=== PATIENT | female | born 2005 | race Caucasian/White ===

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

== ENCOUNTER 2024-05-02 21:15 | Emergency (ER) | payer BC, SELFPAY ==
--- OUTSIDE RECORDS SUMMARY | 2024-05-02 21:17 | XMS_ITS | Continuity of Care Document ---
Author Organization [facility] Address [address] [place] [address] Phone Care Team Providers Care Sales Trader Name Role Phone Dixon OD, Brian Unavailable Unavailable Procedures Procedure Date Eye Exam, New Patient Refraction Advance Directives Directive Yes / No Effective Date File Name No Information Encounters Encounter Description Practice Location Reason(s) For Visit Diagnoses Date Provider Providers Copied on Encounter [facility], [address], [place], [place], [id number], [place] tel:[phone] [facility] No Information [phone] Dixon OD Brian. [address] , [address], [place], [address], [place]. tel:[phone] Family History Family Member Type Diagnosis Age At Onset No Information Payers Payer name Insurance type Covered constitution party ID Authoriza tion(s) No Information Social History Type Description Quantity Date Captured Comments Sex Female Smoking Status No Information Chief Complaint And Reason For Visit No Information Reason For Referral Reason For Referral No Information History Of Present Illness Encounter Date Complaint History Of Prese nt Illness No Information Functional Status Date Functional Assessmen t No Information Instructions Date Instruction Additional Infor mation No Information Assessments Type Assessment Date No Information Patient Care Teams Name Effective Dates (start - stop) Status Members No Information
--- OUTSIDE RECORDS SUMMARY | 2024-05-02 21:17 | XMS_ITS | Clinical Summary ---
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 Gender Identity Not on file Sexual Orientation Not on file Plan of Treatment Health Maintenance Due Date Last Done Comments Hepatitis C Virus (HCV) Screening 2004 Hepatitis B Immunization (4 of 4 - 4-dose series) 2004 2004, 2004, 2004 Meningococcal B Immunization (1 of 2 - Standard) 2020 Influenza Immunization (#1) 2023 12/21/2019, 1 SARS-COV-2 Immunization ( - season) 2023 Respiratory Syncytial Virus (RSV) Immunization (Adult) (1 - 1-dose 75+ series) 02/20/2079 Pneumococcal Immunization Combined Completed 05/24/2005, 2004, 2004, Additional history exists Measles Mumps Rubella (MMR) Immunization Discontinued 11/28/2008, 05/24/2005 Varicella Immunization Discontinued 03/01/2010, 2009 DTaP/Tdap/Td Immunization Discontinued 2015, 05/27/2008, 08/30/2005, Additional history exists TdaP Immunization Completed 08/17/2015 Hepatitis A Immunization Discontinued 11/11/2018, 07/26 Human Papillomavirus (HPV) Immunization Completed 11/11/2018, 08/13/2016, 08/17/2015 Meningococcal Immunization (ACWY) Aged Out No longer eligible based on patient's age to complete this topic Rotavirus Immunization Aged Out No lo nger eligible based on patient's age to complete this topic Insurance [employer] on file
--- OUTSIDE RECORDS SUMMARY | 2024-05-02 21:17 | XMS_ITS | Referral Summary ---
Author Organization [facility] Address [address] [place] [address] Care Team Providers Care Supervisor Hard Candy Name Role Phone Espinoza Lopez MD Primary Care Provider Source Comments [facility],non-owned Affiliates and Associated Physician Practices is amultiple site organization consisting of ambulatory clinics and hospital sitesin [place], [place], [place] and [place]. This disclosure is being madepursuant to the Care Everywhere program and may not contain all information available regarding this patient. Last updated 17.[facility] Allergies No known active allergies Medications * Be aware that medications may not be up to date on this document. Alwaysverify current medications with the patient. Medication Sig Dispensed Refills Start Date End Date Status montelukast (SINGULAIR) 5 MG chew tablet CHEW AND SWALLOW 1 TABLET DAILY IN THE EVENING. 90 Tab 10 05/03/2015 Active albuterol (PROVENTIL;VENTOLIN) (2.5 MG/3ML) 0.083% nebulizer solution Inhale 2.5 mg by mouth every 4 hours as needed for Shortness of Breath or Wheezing 1 Box 1 09/08/2015 Active triamcinolone (NASACORT ALLERGY 24HR) 55 MCG/ACT nasal inhaler [place]red[place] 1 [place]redell into each nostril once daily 1 Inhaler 1 09/08/2015 Active fexofenadine (EDGAR) 60 MG tablet GIVE VICENTA 1 TABLET BY MOUTH EVERY DAY 30 Tab 3 07/04/2016 Active FLOVENT HFA 44 MCG/ACT inhaler INHALE 2 PUFFS BID 02/13/2019 A ctive loratadine (CLARITIN) 10 MG tablet Take 10 mg by mouth once daily Active atomoxetine (STRATTERA) 10 MG capsule Take 10 mg by mouth once daily 01/26/2020 Active albuterol HFA (PROAIR HFA) 108 (90 Base) MCG/ACT inhaler Inhale 2 puffs by mouth every 6 hours as needed 2 Inhaler 1 02/09/2020 Active Active Problems Problem Noted Date Diagnosed Date Moderate persistent asthma with acute exacerbati on 02/09/2020 Assessment & Plan (02/09/2020 2:29 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 For the most part, she has done well even in the face of incomplete adherence to Flovent and not using spacing device consistently. Regardless, not much in the way of albuterol use and no exercise intolerance or nocturnal symptoms. No recent ED or office visits, no oral steroids. Rec: Flovent 44 2 puffs bid-discussed importance of using consistently to reduce need for albuterol Albuterol prn Refill provided Reviewed Aerochamber technique Reviewed inhaler technique Influenza vaccine administered in November F/U 6 months in person visit at [facility] 02/22/2014 Asthma 10/20/2013 Assessment & Plan (05/03/2015 2:58 PM CLAY STRUCTURE BUILDER AND SERVICER): Recent mild exacerbations associated with sinus infections. Not using Aerochamber for Flovent. Rec; Flovent 44 2 puffs bid Albuterol prn Reviewed importance of Aerochamber use Inhaler use reviewed Have recommended further f/u with colleague and friend in [place], Dr. Gladis Garrido, head of Pulmonary at [facility] Immunizations Name Administration Dates Next Due INFLUENZA VACCINE 12/17/2019 Social History Tobacco Use Types Packs/Day Years Used Date Smoking Tobacco: Never Smokeless Tobacco: Never Alcohol Use Standard Drinks/Week Comments No 0 (1 standard drink = 0.6 oz pur e alcohol) Sex and Gender Information Value Date Recorded Sex Assigned at Not on file Gender Identity Not on file Sexual Orientation Not on file Last Filed Vital Signs Vital Sign Reading Time Taken Comments Blood Pressure 92/64 12/15/2013 2:02 PM CDT Pulse 102 05/03/2015 2:19 PM CLAY STRUCTURE BUILDER AND SERVICER Temperature 35.9 C (96.6 F) 05/15/2010 8:59 AM CDT Respiratory Rate 20 05/03/2015 2:19 PM CLAY STRUCTURE BUILDER AND SERVICER Oxygen Saturation 99% 05/03/2015 2:19 PM CLAY STRUCTURE BUILDER AND SERVICER Inhaled Oxygen Concentration - - Weight 50.8 kg (111 lb 15.9 oz) 05/03/2015 2:19 PM CLAY STRUCTURE BUILDER AND SERVICER Height 154.2 cm (5' 0.71 ) 05/03/2015 2:19 PM CS T Body Mass Index 21.36 05/03/2015 2:19 PM CLAY STRUCTURE BUILDER AND SERVICER Plan of Treatment Not on file Care Teams Supervisor Hard Candy Relationship Specialty Start Date End Date Espinoza Lopez MD [address] [place] [address] PCP - General Pediatrics 12/15/13
--- OUTSIDE RECORDS SUMMARY | 2024-05-02 21:17 | XMS_ITS | Patient Health Summary ---
Author Organization [facility] Address [address] [place] [address] Care Team Providers Care Sugar Mill Worker Name Role Phone Espinoza Lopez MD Primary Care Provider Note from [facility],non-owned Affiliates and Associated Physician Practices is amultiple site organization consisting of ambulatory clinics and hospital sitesin [place], [place], [place] and [place]. This disclosure is being madepursuant to the Care Everywhere program and may not contain all information available regarding this patient. Last updated 17.[facility] Allergies No known active allergies Medications * Be aware that medications may not be up to date on this document. Alwaysverify current medications with the patient. * montelukast (SINGULAIR) 5 MG chew tablet(Started 05/03/2015) CHEW AND SWALLOW 1 TABLET DAILY IN THE EVENING. 10 refills left * albuterol (PROVENTIL;VENTOLIN) (2.5 MG/3ML) 0.083% nebulizer solution(Started 09/08/2015) Inhale 2.5 mg by mouth every 4 hours as needed for Shortness of Breath or Wheezing 1 refill left * triamcinolone (NASACORT ALLERGY 24HR) 55 MCG/ACT nasal inhaler(Started 09/08/2015) Williamson 1 Williamson into each nostril once daily 1 refill left * fexofenadine (EDGAR) 60 MG tablet(Started 07/04/2016) GIVE VICENTA 1 TABLET BY MOUTH EVERY DAY 3 refills remaining * FLOVENT HFA 44 MCG/ACT inhaler(Started 02/13/2019) INHALE 2 PUFFS BID * loratadine (CLARITIN) 10 MG tablet Take 10 mg by mouth once daily * atomoxetine (STRATTERA) 10 MG capsule(Started 01/26/2020) Take 10 mg by mouth once daily * albuterol HFA (PROAIR HFA) 108 (90 Base) MCG/ACT inhaler(Started 02/09/2020) Inhale 2 puffs by mouth every 6 hours as needed 1 refill by 02/08/2021 Active Problems Problem Noted Date Diagnosed Date Moderate persistent asthma with acute exacerbati on 02/09/2020 Flatfoot 02/22/2014 Asthma 10/20/2013 Immunizations * INFLUENZA VACCINE(Given 12/17/2019) Social History Tobacco Use Types Packs/Day Years [...] PM CDT Pulse 102 05/03/2015 2:19 PM VP [employer] Temperature 35.9 C (96.6 F) 05/15/2010 8:59 AM CDT Respiratory Rate 20 05/03/2015 2:19 PM VP [employer] Oxygen Saturation 99% 05/03/2015 2:19 PM VP [employer] Inhaled Oxygen Concentration - - Weight 50.8 kg (111 lb 15.9 oz) 05/03/2015 2:19 PM [employer] Height 154.2 cm (5' 0.71 ) 05/03/2015 2:19 PM CS T Body Mass Index 21.36 05/03/2015 2:19 PM [employer] Procedures * BEDSIDE SPIROMETRY(Performed 07/17/2012) * XR CHEST 2VW(Performed 04/03/2010) Performed for Wheezes Results * XR CHEST PA AND LATERAL (04/03/2010 9:20 AM [employer]) Anatomical Region Laterality Modality Chest Radiographic Yessica ging 04/03/2010 9:25 AM [employer] Narrative 04/03/2010 9:25 AM [employer] Chest PA, lateral The heart and mediastinum are normal. The bronchial mandujano are thickened. The lungs are free of peripheral opacities. Diagnosis: Airway disease. Procedure Note Josefina Baker MD - 04/03/2010 Chest PA, lateral The heart and mediastinum are normal. The bronchial mandujano are thickened. The lungs are free of peripheral opacities. Diagnosis: Airway disease. Conor Leyva MD DIAGNOSTIC IMAGING O RDERABLES Care Teams Sugar Mill Worker Relationship Specialty Start Date End Date Espinoza Lopez MD [address] [place], [place] [id number] PCP - General Pediatrics 12/15/13
--- OUTSIDE RECORDS SUMMARY | 2024-05-02 21:17 | XMS_ITS | Data Portability ---
Author Organization [facility], Main Office Address [address] [place] [address] Care Team Providers Care Legal Secretary Name Role Phone GIAN MARADIAGA Primary Care Provider [phone] Assessment Encounter Date Assessment Date Assessment LastModified by Organization Details LastModified Time 09/10/2023 09/10/2023 18 yo F with - WELL ADULT VISIT - SEASONAL ALLERGIC RHINITIS - H/O ADD & ANXIETY D/w pt about her findings and further plan of care. Pt declined for any labs with me. OTC meds as directed. Diet and exercise explained in detail. Safe sex education given. HM: WWE - Pt sees Gyne. Flu - 01/16. Tdap - 08/09. Gardasil - Pt got 3 doses. F/u PRN/Annually. Annual labs in 09/17. [email or web address] Not available 09/10/2023 14:51:10 Plan of Treatment Reminders Order Date Submit Date Provider Last Modified By Organization Details Last Modified Time Details Appointments None recorded. Lab None recorded. Referral None recorded. Procedures None recorded. Surgeries None recorded. Imaging None recorded. Medication Orders amoxicillin 875 mg-potassiu m clavulanate 125 mg tablet 2024 025 [id number], [address], [place], [id number], 15:41:53 Patient TargetsNo targets recorded. Patient InstructionsNo instructions recorded. Reason for Referral None Reported. Problems Name Problem SNOMED Code Status Onset Date Resolution Date Notes Provider Name and Address Organization Details Recorded Time Seasonal allergic rhinitis 609240049 Active 024 Gian Maradiaga MD [address] [facility] [address], [place], [address], [facility] 4 14:44:30 Nasal congestion 38307692 Active 025 Gian Maradiaga MD [address], [address], [facility] 5 15:26:32 Sinusitis 93193070 Active 025 Gian Maradiaga MD [address] [facility], [address], [address], [facility] 5 15:40:56 Fatigue 71975725 Active 025 Gian Maradiaga MD [address] [facility], [address], [address], [facility] 5 15:45:01 Problem Notes None recorded. Medical Equipment None Reported. Allergies No known drug allergies Medications Name Sig Start Date Stop Date Status Note LastModified by Organization Details LastModified Time ketoconazol e 2 % shampoo APPLY TOPICALLY TO RASH 2 TIMES A WEEK active Not Available Not Available No t Available prednisone 20 mg tablet TAKE 2 TABLETS BY MOUTH DAILY FOR 5 DAYS 09/09 completed Not Available Not Available Not Available fluticasone propionate 44 mcg/actuati on HFA aerosol inhaler INHALE 2 PUFFS BY MOUTH TWICE DAILY 09/09 completed Not Available Not Available Not Available montelukast 10 mg tablet TAKE 1 TABLET BY MOUTH EVERY NIGHT AT BEDTIME 09/09 completed Not Available Not Available Not Available albuterol sulfate HFA 90 mcg/actuati on aerosol inhaler INHALE 2 PUFFS BY MOUTH EVERY 4 TO 6 HOURS NEEDED active Not Available Not Available No t Available clobetasol 0.05 % scalp solution active Not Available Not Available Not Available amoxicillin 875 mg-potassiu m clavulanate 125 mg tablet Take 1 tablet twice a day by oral route as directed for 10 days. active Not Available Not Available No t Available atomoxetine 18 mg capsule TAKE 1 CAPSULE BY MOUTH EVERY DAY active Not Available Not Available No t Available Xulane 150 mcg-35 mcg/24 hr transdermal patch UNWRAP AND APPLY 1 PATCH TO SKIN EVERY 7 DAYS FOR 3 WEEKS OF A 4 WEEK CYCLE active Not Available Not Available No t Available Vitals Date Recorded Body height Body mass index (BMI) Body mass index (BMI) Percentile per age and sex Body weight Body temperature Heart rate Respiratory rate Oxygen saturation Oxygen saturation in Arterial blood by Pulse oximetry Systolic blood pressure Diastolic blood pressure Provider Name and Address Organization Details Last Updated DateTime 4 162.56 cm 24.9 kg/m2 79 % 41992.2 4 g 98 [degF] 80 /min 16 /min 98 % 98 % 118 mm[Hg] 68 mm[Hg] Oli Gavin [employer] [facility] [employer] [facility] 4 14:28:13 Date Recorded Body height Body mass index (BMI) Body mass index (BMI) Percentile per age and sex Body weight Body temperature Oxygen saturation Oxygen saturation in Arterial blood by Pulse oximetry Heart rate Systolic blood pressure Diastolic blood pressure Provider Name and Address Organization Details Last Updated DateTime 5 162.56 cm 25.8 kg/m2 82 % 50356.2 6 g 97.2 [degF] 96 % 96 % 101 /min 110 mm[Hg] 76 mm[Hg] Danyell Lozano RN [facility] [employer] [facility] 5 15:37:35 Social History Question Answer Notes LastModified by Organizat ion Details LastModified Time Tobacco Smoking Status Never Smoker Oli lambert [employer] [facility] [employer] 09/10/2023 14:30:17 Do You Have An Advance Directive? No Information not available 09/10/2023 What Is Your Level Of Alcohol Consumption? None Information not available 09/10/2023 Is Blood Transfusion Acceptable In An Emergency? No Information not available 09/10/2023 What Is Your Level Of Caffeine Consumption? Moderate Information not available 09/10/2023 What Is Your Code Status? Full Code Information not available 09/10/2023 In The 14 Days Before Symptom Onset, Have You Had Close Contact With A Laboratory-confir med COVID-19 While That Case Was Ill? No Information not available 09/10/2023 In The 14 Days Before Symptom Onset, Have You Had Close Contact With A Person Who Is Under Investigation For COVID-19 While That Person Was Ill? No Information not available 09/10/2023 Are You Currently Employed? No Information not available 09/10/2023 What Is The Highest Grade Or Level Of School You Have Completed Or The Highest Degree You Have Received? [id number] Information not available 09/10/2023 How Many Days Of Moderate To Strenuous Exercise, Like A Brisk Walk, Did You Do In The Last 7 Days? 5 Information not available 09/10/2023 On Those Days That You Engage In Moderate To Strenuous Exercise, How Many Minutes, On Average, Do You Exercise? 45 Information not available 09/10/2023 What Is The Fluoride Status Of Your Home? Fluoridated Information not available 09/10/2023 Are There Any Guns Present In Your Home? No Information not available 09/10/2023 Do You Use Insect Repellent Routinely? Yes Information not available 09/10/2023 Where Do You Live? SingleLevelHouse Information not available 09/10/2023 Do You Have A Medical Power Of Window Draper? No Information not available 09/10/2023 Do You Have Any Pets? Yes Information not available 09/10/2023 What Is Your Relationship Status? Other Information not available 09/10/2023 Do You Use Your Seat Belt Or Car Seat Routinely? Yes Information not available 09/10/2023 Are You Sexually Active? No Information not available 09/10/2023 Do You Have Smoke And Carbon Monoxide Detectors In Your Home? Yes Information not available 09/10/2023 Are You Passively Exposed To Smoke? No Information no t available 09/10/2023 Are There Any Smokers In Your House? No Information not available 09/10/2023 Do You Participate In Social Media? Yes Information not available 09/10/2023 Do You Feel Stressed (tense, Restless, Nervous, Or Anxious, Or Unable To Sleep At Night)? [id number] Information not available 09/10/2023 Do You Use Any Illicit Or Recreational Drugs? No Information not available 09/10/2023 Do You Use Sunscreen Routinely? Yes Information not available 09/10/2023 Have You Recently Traveled Abroad? No Information not available 09/10/2023 Are You Currently In School? Yes Information not available 09/10/2023 Do You Have Any Dietary Restrictions? No Information not available 09/10/2023 Do You Or Have You Ever Used Any Other Forms Of Tobacco Or Nicotine? No Information not available 09/10/2023 Sex: Female Functional Status Question Answer Note LastModified by Organization D etails LastModified Time What is your exercise level? Moderate Information not available 09/10/2023 Mental Status None recorded. Family History Relationship Description Onset Age of this Age Resolved Age Notes LastModified by Organization Details LastModified Time Father No current problems or disability Not available 09/09 14:29:17 Mother No current problems or disability Not available 09/09 14:29:17 Medical History Condition Response ASTHMA Y Gynecological History Statement/Question Response Do you get headaches during your period N Do your menstrual headaches get severe N Current Control Method Other Date of LMP 08/08/2023 Obstetrics History GPAL:G 0 P 0 0 0 0 Type Value Full Term 0 Total 0 Immunizations Vaccine Type Date Status Note Provider Nam e and Address Organization Details Recorded Time DTaP, unspecified formulation 5 completed Rashmi Green null, [facility] 09/08/2023 12:50:28 DTaP, unspecified formulation 5 completed Rashmi Green null, [facility] 09/08/2023 12:50:31 DTaP, unspecified formulation 5 completed Rashmi Green null, [facility] 09/08/2023 12:50:34 DTaP, unspecified formulation 6 completed Rashmi Green null, [facility] 09/08/2023 12:50:36 DTaP, unspecified formulation 9 completed Rashmi Green null, [facility] 09/08/2023 12:50:39 DTaP, unspecified formulation 6 completed Rashmi Green null, [facility] 09/08/2023 12:50:42 Hib, unspecified formulation 5 completed Rashmi Green null, [facility] 09/08/2023 12:50:48 Hib, unspecified formulation 5 completed Rashmi Green null, [facility] 09/08/2023 12:50:50 Hib, unspecified formulation 5 completed Rashmi Green null, [facility] 09/08/2023 12:50:53 Hib, unspecified formulation 6 completed Rashmi Green null, [facility] 09/08/2023 12:50:56 Hep A, unspecified formulation 7 completed Rashmi Green null, [facility] 09/08/2023 12:51:02 Hep A, unspecified formulation 9 completed Rashmi Green null, [facility] 09/08/2023 12:51:04 Hep B, unspecified formulation 4 completed Rashmi Green null, [facility] 09/08/2023 12:51:12 Hep B, unspecified formulation 5 completed Rashmi Green null, [facility] 09/08/2023 12:51:14 Hep B, unspecified formulation 5 completed Rashmi Green null, [facility] 09/08/2023 12:51:17 HPV, unspecified formulation 6 completed Rashmi Green null, [facility] 09/08/2023 12:51:28 HPV, unspecified formulation 7 completed Rashmi Green null, [facility] 09/08/2023 12:51:31 HPV, unspecified formulation 9 completed Rashmi Green null, [facility] 09/08/2023 12:51:34 influenza, unspecified formulation 5 completed Rashmi Green null, [facility] 09/08/2023 12:51:41 influenza, unspecified formulation 5 completed Rashmi Green null, [facility] 09/08/2023 12:51:44 influenza, unspecified formulation 6 completed Rashmi Green null, [facility] 09/08/2023 12:51:46 influenza, unspecified formulation 9 completed Rashmi Green null, [facility] 09/08/2023 12:51:49 influenza, unspecified formulation 0 completed Rashmi Green null, [facility] 09/08/2023 12:51:52 influenza, unspecified formulation 0 completed Rashmi Green null, [facility] 09/08/2023 12:51:54 influenza, unspecified formulation 1 completed Rashmi Green null, [facility] 09/08/2023 12:51:59 MMR 6 completed Rashmi Green null, [facility] 09/08/2023 12:52:05 MMR 9 completed Rashmi Green null, [facility] 09/08/2023 12:52:08 meningococcal ACWY, unspecified formulation 6 completed Rashmi Green null, [facility] 09/08/2023 12:52:14 meningococcal ACWY, unspecified formulation 1 completed Rashmi Green null, [facility] 09/08/2023 12:52:18 pneumococcal, unspecified formulation 5 completed Rashmi Green null, [facility] 09/08/2023 12:52:25 pneumococcal, unspecified formulation 5 completed Rashmi Green null, [facility] 09/08/2023 12:52:28 pneumococcal, unspecified formulation 5 completed Rashmi Green null, [facility] 09/08/2023 12:52:31 pneumococcal, unspecified formulation 6 completed Rashmi Green null, [facility] 09/08/2023 12:52:34 polio, unspecified formulation 5 completed Rashmi Green null, [facility] 09/08/2023 12:52:40 polio, unspecified formulation 5 completed Rsahmi Green null, [facility] 09/08/2023 12:52:43 polio, unspecified formulation 5 completed Rashmi Green null, [facility] 09/08/2023 12:52:45 polio, unspecified formulation 9 completed Rashmi Green null, [facility] 09/08/2023 12:52:48 varicella 6 completed Rashmi Green null, [facility] 09/08/2023 12:52:55 varicella 0 completed Rashmi Green null, [facility] 09/08/2023 12:52:57 varicella 1 completed Rashmi Green null, [facility] 09/08/2023 12:53:01 SARS-COV-2 (COVID-19) vaccine, UNSPECIFIED 1 completed Rashmi Green null, [facility] 09/08/2023 12:53:07 SARS-COV-2 (COVID-19) vaccine, UNSPECIFIED 1 completed Rashmi Green null, [facility] 09/08/2023 12:53:11 Influenza, split virus, trivalent, PF 5 completed Oli Gavin null, [facility] 03/03/2024 16:22:27 Past Encounters Encounter ID Performer Location Encounter Start Date Encounter Closed Date Diagnosis/Indication Diagnosis SNOMED-CT Code Diagnosis ICD10 Code Diagnosis Note [id number] Gian Maradiaga MD [address] [address] 09/10/2023 14:21:18 09/10/2023 14:54:12 Adult health examination 468928592 Z00.00 Education about sexually transmitted disease prevention 539152107 Z70.8 Seasonal a llergic rhinitis 030863839 J30.2 [id number] Gian Maradiaga MD [address] [address] 03/03/2024 13:56:52 03/03/2024 14:35:26 Administration of influenza vaccine 05153306 Z23 [id number] Gian Maradiaga MD [facility] [address] [place] [address] 03/08/2024 15:25:00 03/08/2024 16:03:08 Nasal congestion 60792765 R09.81 Sinusitis 83522845 J32.9 Fatigue 60951915 R53.83 Health Concerns Section Related Observation LastModified by Organization Detai ls LastModified Time None Recorded Concern Status LastModified by Organization Details LastModified Time None Recorded Advance Directives Directive N: Payers Encounter Date Sequence Insurance Name Policy Number Policy Perez Covered Member ID Perez Member ID Guarantor Name 09/10/2023 1 [facility] ([place] [address] [id number] Estrada Miranda 03/03/2024 1 [employer] ([place] [address] [id number] Estrada Miranda 03/08/2024 1 [place] ([place] [address] [id number] Estrada Benzie Notes Date Note Type Note Provider Name and Address Organization Details Recorded Time 09/10/2023 text/html New pt visit:18 yo F is here to establish her care. Pt was seeing PCP at [facility] in the past.Doing overall well. Denies any new concern. Pt has h/o mild ADD and anxiety and was on Strattera for it in the past. She has stopped it last year and is doing well without any meds. Denies any mood concern. Pt is going for [employer] program and got labs done for it and all were good.PMH, FH and SH reviewed. Gian Maradiaga MD [address] [facility], [facility] [address], [place], [address], [facility] 09/10/2023 14:52:36 03/08/2024 text/html ACV:Here with mom. C/o congestion, cough, fatigue, greenish drainage for last 4-5 days. Pt has been doing otc meds, but still not getting any better. Gian Maradiaga MD [address] [facility], [facility] [address], [place], [address], [place] [facility] 03/08/2024 15:45:21 OBGyn Episode No OBEpisode recorded.
--- OUTSIDE RECORDS SUMMARY | 2024-05-02 21:17 | XMS_ITS | Clinical Summary ---
Author Organization [facility] Address [address] [place] [address] Care Team Providers Care Rn Admissions Name Role Phone Espinoza Lopez MD Primary Care Provider Source Comments [facility],non-owned Affiliates and Associated Physician Practices is amultiple site organization consisting of ambulatory clinics and hospital sitesin [place], [place], [place] and [place]. This disclosure is being madepursuant to the Care Everywhere program and may not contain all information available regarding this patient. Last updated 17.[facility] Allergies No known active allergies Medications * [...] (NASACORT ALLERGY 24HR) 55 MCG/ACT nasal inhaler Jensen 1 Jensen into each nostril once daily 1 Inhaler [...] 02/09/2020 Assessment & Plan (02/09/2020 2:29 PM OUTBOUND SUPERVISOR): Nearly 15 year old girl who I have followed closely in the past prior to their move to the [facility] now have returned to the [place]. For the most part, she has done [...] F/U 6 months in person visit at [facility] 02/22/2014 Asthma 10/20/2013 Assessment & Plan (05/03/2015 2:58 PM OUTBOUND SUPERVISOR): Recent mild exacerbations associated with sinus infections. Not using Aerochamber for Flovent. Rec; Flovent 44 2 puffs bid Albuterol prn Reviewed importance of Aerochamber use Inhaler use reviewed Have recommended further f/u with colleague and friend in [place], Dr. Gladis Garrido, head of Pulmonary at [facility] Immunizations Name Administration Dates Next Due INFLUENZA VACCINE 12/17/2019 Family History Medical History Relation Name Comments Sleep Disorder-BRADLY Maternal Grandfather Allergies Maternal Uncle Hay Fever Maternal Uncle Asthma Neg Hx Relation Name Status Comments Maternal Grandfather Maternal Uncle Social History Tobacco Use Types Packs/Day Years [...] PM CDT Pulse 102 05/03/2015 2:19 PM OUTBOUND SUPERVISOR Temperature 35.9 C (96.6 F) 05/15/2010 8:59 AM CDT Respiratory Rate 20 05/03/2015 2:19 PM OUTBOUND SUPERVISOR Oxygen Saturation 99% 05/03/2015 2:19 PM OUTBOUND SUPERVISOR Inhaled Oxygen Concentration - - Weight 50.8 kg (111 lb 15.9 oz) 05/03/2015 2:19 PM OUTBOUND SUPERVISOR Height 154.2 cm (5' 0.71 ) 05/03/2015 2:19 PM CS T Body Mass Index 21.36 05/03/2015 2:19 PM OUTBOUND SUPERVISOR Plan of Treatment Health Maintenance Due Date Last Done Comments HIV SCREENING 02/20/2019 HPV VACCINE (1 - 3-dose series) 02/20/2019 CHLAMYDIA/GONORRHEA SCREENING 2020 MENINGOCOCCAL (Group B) VACC INE (1 of 2 - Standard) 2020 HEPATITIS C SCREENING 02/16/2022 DTAP/TDAP/TD VACCINES (1 - Tdap) 02/20/2023 HEPATITIS B VACCINE (1 of 3 - 19+ 3-dose series) 02/20/2023 PNEUMOCOCCAL VACCINE (1 of 2 - PCV) 02/20/2023 COVID-19 VACCINE (1 - 2023-2 5 season) 2023 INFLUENZA VACCINE (#1) 2023 12/17/2019 DEPRESSION SCREENING 02/25/2024 ZOSTER VACCINE (1 of 2) 02/20/2054 HIB VACCINE Aged Out No longer eligi ble based on patient's age to complete this topic MENINGOCOCCAL VACCINE Aged Out No [place] eligible based on patient's age to complete this topic Care Teams Rn Admissions Relationship Specialty Start Date End Date Espinoza Lopez MD [address] [place] [address] PCP - General Pediatrics 12/15/13
[2024-05-02 21:18] VITALS: BP 132/72; PULSE 117; RESP 15; TEMP 36.8; O2SAT 100
[2024-05-02 21:36] LABS: Basophils Percent Auto 0.2 % (0.2-1.2); Eosinophils Absolute Auto 0.1 K/mm3 (0-0.3); Eosinophils Percent Auto 0.5 % (0-4.4); Hematocrit 40.2 % (37.0-47.0); Hemoglobin 13.9 g/dL (12.0-15.0); Immature Granulocyte Absolute 0.06 K/mm3 (0.00-0.031); Immature Granulocyte Percent A 0.4 % (0-0.5); Lymphocytes Absolute Auto 2.24 K/mm3 (0.9-3.2); Lymphocytes Percent Auto 13.3 % (18.3-44.2); Mean Corpuscular HGB Conc 34.6 g/dl (32-36); Mean Corpuscular Hemoglobin 32.6 pg (26-34); Mean Corpuscular Volume 94.1 fl (80-100); Mean Platelet Volume 10.7 fl (7.4-10.4); Monocytes Absolute Auto 0.9 K/mm3 (0.1-0.6); Monocytes Percent Auto 5.3 % (2.6-8.5); Neutrophils Absolute Auto 13.5 K/mm3 (1.3-6.7); Neutrophils Percent Auto 80.3 % (45.5-73.1); Platelet Count Result 232 k/mm3 (150-375); Red Blood Count 4.27 M/mm3 (4.2-5.4); Red Cell Distribution Width 11.4 % (11.5-14.5); White Blood Count 16.9 K/mm3 (4.5-10.0)
--- OUTSIDE RECORDS SUMMARY | 2024-05-02 21:53 | XMS_ITS | Referral Summary ---
Author Organization [facility] Address [address] [place] [address] Care Team Providers Care Finance Associate Name Role Phone Espinoza Lopez MD Primary Care Provider Source Comments [facility] [employer],non-owned Affiliates and Associated Physician Practices is amultiple site organization consisting of ambulatory clinics and hospital sitesin [place], [place], [place] and [place]. This disclosure is being madepursuant to the Care Everywhere program and may not contain all information available regarding this patient. Last updated 17.[facility] Allergies No known active allergies Medications * [...] (NASACORT ALLERGY 24HR) 55 MCG/ACT nasal inhaler [place] 1 [place] into each nostril once daily 1 Inhaler [...] 02/09/2020 Assessment & Plan (02/09/2020 2:29 PM DESIGN ASSISTANT): Nearly 15 year old girl who I have followed closely in the past prior to their move to the [facility] now have returned to the [place]. For the most part, she has done [...] F/U 6 months in person visit at [facility] 02/22/2014 Asthma 10/20/2013 Assessment & Plan (05/03/2015 2:58 PM DESIGN ASSISTANT): Recent mild exacerbations associated with sinus infections. Not using Aerochamber for Flovent. Rec; Flovent 44 2 puffs bid Albuterol prn Reviewed importance of Aerochamber use Inhaler use reviewed Have recommended further f/u with colleague and friend in [place], Dr. Gladis Garrido, head of Pulmonary at [facility] Immunizations Name Administration Dates Next Due [...] PM CDT Pulse 102 05/03/2015 2:19 PM DESIGN ASSISTANT Temperature 35.9 C (96.6 F) 05/15/2010 8:59 AM CDT Respiratory Rate 20 05/03/2015 2:19 PM DESIGN ASSISTANT Oxygen Saturation 99% 05/03/2015 2:19 PM DESIGN ASSISTANT Inhaled Oxygen Concentration - - Weight 50.8 kg (111 lb 15.9 oz) 05/03/2015 2:19 PM DESIGN ASSISTANT Height 154.2 cm (5' 0.71 ) 05/03/2015 2:19 PM CS T Body Mass Index 21.36 05/03/2015 2:19 PM DESIGN ASSISTANT Plan of Treatment Not on file Care Teams Finance Associate Relationship Specialty Start Date End Date Espinoza Lopez MD [address] [place] [address] PCP - General Pediatrics 12/15/13
--- OUTSIDE RECORDS SUMMARY | 2024-05-02 21:53 | XMS_ITS | Continuity of Care Document ---
Author Organization [facility] Address [address] [place] [address] Phone Care Team Providers Care Software Developer Intern Name Role Phone Dixon OD, Brian Unavailable Unavailable Procedures Procedure Date Eye Exam, New Patient Refraction Advance Directives Directive Yes / No Effective Date File Name No Information Encounters Encounter Description Practice Location Reason(s) For Visit Diagnoses Date Provider Providers Copied on Encounter [facility], [address], [place], [place], [id number], [place] tel:[phone] [facility] No Information [phone] Dixon OD Brian. [address] , [address], [place], [address], [place]. tel:[phone] Family History Family Member Type Diagnosis Age [...]
--- OUTSIDE RECORDS SUMMARY | 2024-05-02 21:53 | XMS_ITS | Clinical Summary ---
Author Organization [facility] Address [address] [place] [address] Care Team Providers Care Obstetrics Teacher Name Role Phone Unavailable Primary Care Provider Unavailabl e Social History Tobacco Use Types Packs/Day Years Used Date Smoking Tobacco: Never Assessed Comments Unknown Sex and Gender Information Value Date Recorded Sex Assigned at Not on file Legal Sex Female 1:01 PM TRACK LEADER Gender Identity Not on file Sexual Orientation [...]
--- OUTSIDE RECORDS SUMMARY | 2024-05-02 21:53 | XMS_ITS | Clinical Summary ---
Author Organization [facility] Address [address] [place] [address] Care Team Providers Care Casting Wheel Operator Helper Name Role Phone Espinoza Lopez MD Primary Care Provider Source Comments [facility],non-owned Affiliates and Associated Physician Practices is amultiple site organization consisting of ambulatory clinics and hospital sitesin [place], [place], [place] and [place]. This disclosure is being madepursuant to the Care Everywhere program and may not contain all information available regarding this patient. Last updated 17.[facility] Allergies No known active allergies Medications * [...] (NASACORT ALLERGY 24HR) 55 MCG/ACT nasal inhaler Parma 1 Parma into each nostril once daily 1 Inhaler 1 09/08/2015 Active fexofenadine (EGDAR) 60 MG tablet GIVE VICENTA 1 TABLET [...] 02/09/2020 Assessment & Plan (02/09/2020 2:29 PM WATCH CRYSTAL MOLDER): Nearly 15 year old girl who I have followed closely in the past prior to their move to the [facility] now have returned to the [place]. For the most part, she has done [...] F/U 6 months in person visit at [facility] 02/22/2014 Asthma 10/20/2013 Assessment & Plan (05/03/2015 2:58 PM WATCH CRYSTAL MOLDER): Recent mild exacerbations associated with sinus infections. Not using Aerochamber for Flovent. Rec; Flovent 44 2 puffs bid Albuterol prn Reviewed importance of Aerochamber use Inhaler use reviewed Have recommended further f/u with colleague and friend in [place], Dr. Gladis Garrido, head of Pulmonary at [facility] Immunizations Name Administration Dates Next Due [...] PM CDT Pulse 102 05/03/2015 2:19 PM WATCH CRYSTAL MOLDER Temperature 35.9 C (96.6 F) 05/15/2010 8:59 AM CDT Respiratory Rate 20 05/03/2015 2:19 PM WATCH CRYSTAL MOLDER Oxygen Saturation 99% 05/03/2015 2:19 PM WATCH CRYSTAL MOLDER Inhaled Oxygen Concentration - - Weight 50.8 kg (111 lb 15.9 oz) 05/03/2015 2:19 PM WATCH CRYSTAL MOLDER Height 154.2 cm (5' 0.71 ) 05/03/2015 2:19 PM CS T Body Mass Index 21.36 05/03/2015 2:19 PM WATCH CRYSTAL MOLDER Plan of Treatment Health Maintenance Due Date [...] age to complete this topic Care Teams Casting Wheel Operator Helper Relationship Specialty Start Date End Date Espinoza Lopez MD [address] [place] [address] PCP - General Pediatrics 12/15/13
--- OUTSIDE RECORDS SUMMARY | 2024-05-02 21:53 | XMS_ITS | Patient Health Summary ---
Author Organization [facility] Address [address] [place] [address] Care Team Providers Care Channel Rougher Name Role Phone Espinoza Lopez MD Primary Care Provider Note from [facility],non-owned Affiliates and Associated Physician Practices is amultiple site organization consisting of ambulatory clinics and hospital sitesin [place], [place], [place] and [place]. This disclosure is being madepursuant to the Care Everywhere program and may not contain all information available regarding this patient. Last updated 17.[facility] Allergies No known active allergies Medications * [...] ALLERGY 24HR) 55 MCG/ACT nasal inhaler(Started 09/08/2015) [place] 1 [place] into each nostril once daily 1 refill [...] PM CDT Pulse 102 05/03/2015 2:19 PM CANDY VENDOR Temperature 35.9 C (96.6 F) 05/15/2010 8:59 AM CDT Respiratory Rate 20 05/03/2015 2:19 PM CANDY VENDOR Oxygen Saturation 99% 05/03/2015 2:19 PM CANDY VENDOR Inhaled Oxygen Concentration - - Weight 50.8 kg (111 lb 15.9 oz) 05/03/2015 2:19 PM CANDY VENDOR Height 154.2 cm (5' 0.71 ) 05/03/2015 2:19 PM CS T Body Mass Index 21.36 05/03/2015 2:19 PM CANDY VENDOR Procedures * BEDSIDE SPIROMETRY(Performed 07/17/2012) * XR CHEST 2VW(Performed 04/03/2010) Performed for Wheezes Results * XR CHEST PA AND LATERAL (04/03/2010 9:20 AM CANDY VENDOR) Anatomical Region Laterality Modality Chest Radiographic Yessica ging 04/03/2010 9:25 AM CANDY VENDOR Narrative 04/03/2010 9:25 AM CANDY VENDOR Chest PA, lateral The heart and mediastinum [...] MD DIAGNOSTIC IMAGING [facility] Care Teams Channel Rougher Relationship Specialty Start Date End Date Espinoza Lopez MD [address] [place], [place] [id number] PCP - General Pediatrics 12/15/13
[2024-05-02 21:54] LABS: Alanine Aminotransferase 17 U/L (6-35); Albumin Level 4.6 g/dL (3.5-5.1); Alkaline Phosphatase 69 U/L (38-126); Anion Gap 9 mmol/L (4-12); Aspartate Amino Transferase 24 U/L (14-36); Bilirubin,Total 0.2 mg/dL (0.2-1.3); Blood Urea Nitrogen 12 mg/dL (7-17); Calcium 9.6 mg/dL (8.4-10.2); Carbon Dioxide 27 mmol/L (22-30); Chloride 103 mmol/L (98-107); Estimated CRCL calculation 84 ml/min; Estimated Glomerular Filt Rate > 60; Glucose 98 mg/dL (65-110); Lipase 115 U/L (23-300); Potassium 4.2 mmol/L (3.4-5.0); Sodium 139 mmol/L (137-145)
--- NOTE | 2024-05-02 22:38 | ED_ITS ---
HPI - Nausea/Vomiting/Diarrhea General Chief complaint: Nausea/Vomiting/Diarrhea Stated complaint: Vomiting/Diarrhea for several weeks Time Seen by Provider: 05/02/24 21:37 History of Present Illness HPI Narrative: Patient states that for last few weeks she has had nausea, vomiting, diarrhea, it comes and goes, no recent travel, no recent antibiotic usage, today was having multiple bouts of diarrhea and then vomiting so finally came in. Having sharp abdominal pain occasionally. Related Data Home Medications ?Medication ?Instructions ?Recorded ?Confirmed ?Last Taken ?Type montelukast 10 mg tablet 10 mg PO DAILY 12/17/19 08/25/23 Unknown History albuterol sulfate 90 mcg/actuation 1 puff inhalation Q4H PRN 03/20/21 08/25/23 Unknown History aerosol inhaler Shortness Of Breath Or Wheezing loratadine 10 mg tablet (Claritin) 10 mg PO DAILY 07/18/21 08/25/23 Unknown History Allergies Allergy/AdvReac Type Severity Reaction Status Date / Time No Known Allergies Allergy Verified 05/02/24 21:16 Review of Systems 2 Review of Systems: All systems reviewed & are unremarkable except as noted in HPI and below PMFSH Past Medical History Medical History ADHD Asthma Surgical History Surgical History History of foot surgery [place] teeth removed Social History Social History Smoking status: Never smoker Alcohol intake: never Substance use: never Lack of Transportation: No Lack of Food: Never True Current Housing: I Have Housing Concerned About Future Housing: No Difficulty Paying Gas/Electric Bills: No Difficulty Paying for Meds: No Currently Unemployed: No Education: High School Diploma/GED Difficulty w/ Childcare or Family Care: No Living arrangements: with family Occupation/Education: student Gender identity (if verbalized by the patient): Female Sexual Orientation (if Verbalized by the Patient): Straight or Heterosexual Spiritual care concerns: No Exam 2 Narrative: EXAMINATION OF ORGAN SYSTEMS/BODY AREAS: Constitutional: Vital signs per nursing GENERAL:[No acute distress, non-toxic appearing.] HEAD: Normal with no signs of head trauma. EYES: EOMI, conjunctiva normal ENT: Hearing grossly intact LUNGS: Nonlabored breathing. HEART: Slightly tachycardic ABD: [Soft], [nontender to palpation] EXT: Normal range of motion SKIN: [No rashes or lesions.] NEURO: [Alert and oriented x 3. No gross focal sensory or strength deficits.] PSYCH: Normal affect Course Vital Signs Vital signs: Vital Signs Temperature 98.2 F 05/02/24 21:18 Pulse Rate 117 H 05/02/24 21:18 Respiratory Rate 15 05/02/24 21:18 Blood Pressure 132/72 05/02/24 21:18 Pulse Oximetry 100 05/02/24 21:18 Oxygen Delivery Room Air 05/02/24 21:18 Temperature 98.2 F 05/02/24 21:18 Pulse Rate 99 05/03/24 00:29 Respiratory Rate 18 05/03/24 00:29 Blood Pressure 102/71 05/03/24 00:29 Pulse Oximetry 100 05/03/24 00:29 Oxygen Delivery Room Air 05/02/24 21:18 MDM - Nausea/Vomiting/Diarrhea MDM Narrative Medical decision making narrative: Patient states that for last few weeks she has had nausea, vomiting, diarrhea, it comes and goes, no recent travel, no recent antibiotic usage, today was having multiple bouts of diarrhea and then vomiting so finally came in. Having sharp abdominal pain occasionally. Abdomen soft nontender on exam does not appear to be in distress, she does have elevated white count on labs, and some slight ketones, I suspect probably from her symptoms, she has no focal abdominal tenderness or fevers from medial be concerned about any intra-abdominal surgical emergency, she is treated symptomatically, will try to collect a stool culture. He after hours here she still has not had any urge to have diarrhea, and on re-evaluation is feeling much better, abdominal pain has resolved, abdomen soft nontender at this time, still slightly nauseous but no longer feels like she needs to throat. Would like to go home at this time and I feel this is quite reasonable, reviewed vital signs improved, will have her follow-up with Gastroenterology given her prolonged diarrhea for any further testing. I have also let them know that if she develops symptoms again that she can always return to the emergency room. Patient and family at bedside agreeable to this plan. Lab Data 05/02/24 21:26 03/09/25 21:26 Labs: Lab Results 05/02/24 05/02/24 05/02/24 Range/Units 21:26 23:04 23:05 WBC 16.9 H (4.5-10.0) K/mm3 RBC 4.27 (4.2-5.4) M/mm3 Hgb 13.9 (12.0-15.0) g/dL Hct 40.2 (37.0-47.0) % MCV 94.1 (80-100) fl MCH 32.6 (26-34) pg MCHC 34.6 (32-36) g/dl RDW 11.4 L (11.5-14.5) % Plt Count 232 (150-375) k/mm3 MPV 10.7 H (7.4-10.4) fl Immature Gran % (Auto) 0.4 (0-0.5) % Neut % (Auto) 80.3 H (45.5-73.1) % Lymph % (Auto) 13.3 L (18.3-44.2) % White % (Auto) 5.3 (2.6-8.5) % Eos % (Auto) 0.5 (0-4.4) % Baso % (Auto) 0.2 (0.2-1.2) % Lymph # (Auto) 2.24 (0.9-3.2) K/mm3 White # (Auto) 0.9 H (0.1-0.6) K/mm3 Eos # (Auto) 0.1 (0-0.3) K/mm3 Baso # (Auto) 0.0 (0.0-0.1) K/mm3 Abs Immat Gran (auto) 0.06 H (0.00-0.031) K/mm3 Absolute Neuts (auto) 13.5 H (1.3-6.7) K/mm3 Absolute Nucleated RBC 0.000 (0.0-0.012) K/mm3 Nucleated RBC % 0.0 (0.0-0.2) % Sodium 139 (137-145) mmol/L Potassium 4.2 (3.4-5.0) mmol/L Chloride 103 (98-107) mmol/L Carbon Dioxide 27 (22-30) mmol/L Anion Gap 9 (4-12) mmol/L BUN 12 (7-17) mg/dL Creatinine 0.80 (0.7-1.0) mg/dL Estim Creat Clear Calc 84 ml/min Estimated GFR > 60 (59 - ) Glucose 98 (65-110) mg/dL Calcium 9.6 (8.4-10.2) mg/dL Total Bilirubin 0.2 (0.2-1.3) mg/dL AST 24 (14-36) U/L ALT 17 (6-35) U/L Alkaline Phosphatase 69 (38-126) U/L Total Protein 8.0 (6.3-8.2) g/dL Albumin 4.6 (3.5-5.1) g/dL Lipase 115 (23-300) U/L Urine Color Yellow (Yellow) Urine Appearance Clear (Clear) Urine pH 6.5 (5.0-9.0) Ur Specific [place] 1.021 (1.001-1.035) Urine Protein Negative (Negative) mg/dL Urine Glucose (UA) Negative (Negative) mg/dL Urine Ketones Trace H (Negative) mg/dL Ur Blood (Man) Negative (Negative) Urine Nitrate Negative (Negative) Urine Bilirubin Negative (Negative) Urine Urobilinogen 0.2 (<2.0) mg/dL Leukocyte Esterase Rfl Negative (Negative) HANNY/UL POC Urine HCG, Qual Negative (Negative) Discharge Plan Discharge Clinical Impression: Nausea, vomiting, and diarrhea Patient Disposition: Home, Self-Care Condition: Stable Instructions: Acute Nausea and Vomiting (ED), Chronic Diarrhea (ED), Abdominal Pain (ED) Additional Instructions: Please follow up with your doctor; you can always return for any further issues especially if your abdominal pain gets worse, you develop fevers or chills, you can't stop throwing up, or anything else concerning. Patient Language: Omani Prescriptions: New dicyclomine 20 mg tablet 20 mg PO TID PRN (Reason: abdominal pain) Qty: 30 0RF ondansetron 4 mg tablet,disintegrating 4 mg PO Q8H PRN (Reason: nausea and vomiting) Qty: 10 0RF loperamide 2 mg tablet 2 mg PO Q4H PRN (Reason: loose stool) Qty: 14 0RF Rx Instructions: administer after each loose stool until symptoms controlled; do not exceed 8 mg per 24 hrs No Action loratadine [Claritin] 10 mg Tablet 10 mg PO DAILY prednisone 20 mg tablet 40 mg PO DAILY 5 Days Qty: 10 0RF albuterol sulfate 90 mcg/actuation HFA aerosol inhaler 1 puff inhalation Q4H PRN (Reason: Shortness Of Breath Or Wheezing) montelukast 10 mg tablet 10 mg PO DAILY norelgestromin-ethin.estradiol [Xulane] 150-35 mcg/24 hr patch weekly 1 patch transdermal Q7D Qty: 9 3RF Rx Instructions: apply once weekly for 3 weeks of a 4-week cycle Follow-up/Referrals: PHYSICIAN NOT ON STAFF,NONSTAFF [Primary Care Provider] - Erick Vernon MD [Physician] - 2 Days
[2024-05-02 23:07] LABS: BEDSIDEPREGUCG Negative (Negative)
[2024-05-02 23:11] LABS: Add Urine Microscopic? NO; Appearance Urine Clear (Clear); Bilirubin Urine Negative (Negative); Blood Urine Negative (Negative); Color Urine Yellow (Yellow); Glucose Urine UA Negative (Negative); Ketones Urine Trace mg/dL (Negative); Leukocyte Esterase Ur Negative LEU/UL (Negative); Nitrate Urine Negative (Negative); Protein Urine Negative (Negative); Specific Grav Ur 1.021 (1.001-1.035); Urobilinogen Urine 0.2 mg/dL (<2.0); pH Urine 6.5 (5.0-9.0)
[2024-05-02] MEDS: LACTATED RINGERS 1,000 ML 999 ML IV CONT (23:24)
[2024-05-02] MEDS: ONDANSETRON INJ 4 MG/2 ML VIAL IV PUSH (23:24)
[2024-05-02] MEDS: LOPERAMIDE HCL 2 MG CAPSULE 4 MG PO (23:59)
[2024-05-03] MEDS: ONDANSETRON INJ 4 MG/2 ML VIAL IV PUSH (00:28)
[2024-05-03 00:29] VITALS: BP 102/71; PULSE 99; RESP 18; O2SAT 100
== END 2024-05-03 00:40 | disposition home or self-care (01) ==
PROVIDERS: Emergency Provider Emergency Medicine
DX: R11.2 Nausea with vomiting, unspecified (principal); R19.7 Diarrhea, unspecified; J45.909 Unspecified asthma, uncomplicated; Z79.1 Long term (current) use of non-steroidal anti-inflammatories (NSAID); Z79.3 Long term (current) use of hormonal contraceptives
CPT/HCPCS: 36415; 80053; 81003; 81025; 83690; 85025; 96361; 96374; 96375; 99284; A9270; J2405; J7120

== ENCOUNTER 2024-11-24 17:05 | Emergency (ER) | payer BC, SELFPAY ==
--- NOTE | ~2024-11-24 | XR_ITS ---
EXAMINATION: XR foot LT min 3V, 11/24/2024 17:11 CDT HISTORY: pain in metatarsals from running COMPARISON: No comparisons available. Findings: No acute fracture or malalignment. No significant degenerative changes. Soft tissues unremarkable. Impression: No acute fracture or malalignment. Reviewed, dictated and finalized at location P. Impression: No acute fracture or malalignment.
--- OUTSIDE RECORDS SUMMARY | 2024-11-24 17:07 | XMS_ITS | Clinical Summary ---
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
[2024-11-24 17:13] VITALS: BP 111/68; PULSE 84; RESP 18; TEMP 36.3; O2SAT 100
--- NOTE | 2024-11-24 18:01 | ED.LOWEXIN ---
HPI - Extremity Injury (Lower) General Chief Complaint: Extremity Injury, Lower Stated Complaint: Left foot Time Seen by Provider: 11/24/24 17:45 Source: patient and RN notes reviewed Mode of arrival: ambulatory Limitations: no limitations History of Present Illness HPI Narrative: 19-year-old female Presents Express Care complaining of left foot pain for 3 months. Patient denies any apparent injury to her left foot. Patient believes she might injury date during drill 3 months ago when she was running with a heavy back for training. Patient says she has continued to run with the back past the help with staying in shape the [place]. Patient is not given herself any rest continues have pain in her left foot primarily throughout her metatarsals. Patient has a history of a foot surgery to her 1st metatarsal for a bunion. Pain is worse when she is bearing weight on her left foot a running however the pain does remain constant. Patient's has been taking ibuprofen with some relief. Patient denies any numbness, tingling or any other injuries. Patient denies any significant past medical history. Related Data Home Medications ?Medication ?Instructions ?Recorded ?Confirmed ?Last Taken ?Type loratadine 10 mg tablet (Claritin) 10 mg PO DAILY 07/18/21 06/16/24 Unknown History Allergies Allergy/AdvReac Type Severity Reaction Status Date / Time No Known Allergies Allergy Verified 11/24/24 17:23 Review of Systems Review of Systems: CONSTITUTIONAL: Denies fever, chills, or sweats. EYES: Denies visual changes, redness, or discharge. ENT: Denies rhinorrhea, congestion, sore throat, or otalgia. CARDIOVASCULAR: Denies chest pain, palpitations, or edema. RESPIRATORY: Denies cough or dyspnea. GASTROINTESTINAL: Denies abdominal pain, nausea, vomiting, or diarrhea. GENITOURINARY: Denies dysuria or hematuria. SKIN: Denies rash, wound, or itching. MUSCULOSKELETAL: Denies back pain, joint pain, or myalgia. Positive for foot pain NEUROLOGIC: Denies headache, numbness, or weakness. PSYCHIATRIC: Denies anxiety or depression. All other systems reviewed are negative, except as documented in HPI. [facility] Past Medical History Medical History ADHD Asthma Surgical History Surgical History [place] teeth removed History of foot surgery Social History Social History Smoking status: Never smoker Alcohol intake: never Substance use: never Lack of Transportation: No Lack of Food: Never True Current Housing: I Have Housing Concerned About Future Housing: No Difficulty Paying Gas/Electric Bills: No Difficulty Paying for Meds: No Currently Unemployed: No Education: High School Diploma/GED Difficulty w/ Childcare or Family Care: No Living arrangements: with family Occupation/Education: student Gender identity (if verbalized by the patient): Female Sexual Orientation (if Verbalized by the Patient): Straight or Heterosexual Spiritual care concerns: No Comments At the time of my signature, I reviewed and agree with the nursing past medical, surgical, social, and family history. There is no relevant family history pertinent to the patient complaint. Exam Narrative: GENERAL: This is a well-nourished, well-developed adult, in no apparent distress. They are non ill-appearing, nontoxic appearing. HEAD: normocephalic, atraumatic. EYES: Sclera clear/white. Vision is grossly intact. Conjunctiva normal. Extraocular movement intact. EARS: External ears normal Hearing grossly intact. NOSE: External nose normal THROAT: Mucous membranes moist NECK: Neck supple CARDIOVASCULAR: Regular rate and rhythm RESPIRATORY: Respiratory rate normal, respiratory effort nonlabored, no respiratory distress NEURO: awake, alert, and oriented to person, place and time. There were no obvious focal neurologic abnormalities. EXTREMITIES: Left foot: No obvious deformity, injury, swelling, bruising, redness. Normal range of motion. Left assembly machine tender throughout the dorsal and plantar surface of the foot near the metatarsals. Capillary refill less than 3 seconds. Left pedal Pulse 2 +palpable. Normal sensation. Neurovascular status intact distal injury. Patient is able to wiggle her toes. Negative Roach's test. BACK: Nontender without deformity. Course Course Emergency Course: Portions of this record may have been created with voice recognition software Level of Care: Express Care Visit Vital Signs Vital signs: Vital Signs Temperature 97.4 F L 11/24/24 17:13 Pulse Rate 84 11/24/24 17:13 Respiratory Rate 18 11/24/24 17:13 Blood Pressure 111/68 11/24/24 17:13 Pulse Oximetry 100 11/24/24 17:13 Oxygen Delivery Room Air 11/24/24 17:13 Temperature 97.4 F L 11/24/24 17:13 Pulse Rate 84 11/24/24 17:13 Respiratory Rate 18 11/24/24 17:13 Blood Pressure 111/68 11/24/24 17:13 Pulse Oximetry 100 11/24/24 17:13 Oxygen Delivery Room Air 11/24/24 17:13 Reviewed MDM - Extremity Injury (Lower) MDM Narrative Medical decision making narrative: X-ray left foot negative for any fractures or acute findings. Surgical changes noted to 1st metatarsal for a hallux valgus. Patient likely has a foot sprain, patient is not rested since she injured her left foot. Recommend resting and avoiding anything that may aggravate her symptoms such as running or intense exercise for the next 2 weeks see if it helps. Discussed the importance of supportive footwear and consider foot inserts or arch support to help with symptoms. Advised her to follow-up with her ski topper or new ski topper for her symptoms given that it has been recurring for the last 3 months. Patient given Fortino wrap for compression. Discussed physical exam findings. Advised supportive measures and signs/symptoms to go to the ER. Pt is appropriate for outpt treatment and f/u. Differential Diagnosis Differential diagnosis: Likely ankle sprain and strain, fracture of toe and other (Foot fracture, foot sprain, plantar fasciitis, overuse injury, arthritis) Imaging Data Radiologist's impression: ITS Impressions Foot X-Ray 11/24/24 17:32 Impression: No acute fracture or malalignment. Critical Care Time Critical Care Time Critical Care Time: No Discharge Plan Discharge Clinical Impression: Sprain of left foot Qualifiers: Encounter type: initial encounter Qualified Code(s): S93.602A - Unspecified sprain of left foot, initial encounter Patient Disposition: Home Condition: Stable Instructions: Foot Sprain (ED) Additional Instructions: The x-ray of your left foot is negative for any fractures or acute findings. Rest and elevate the leg; bear weight as tolerated Apply ice 15-20 minute intervals several times a day Keep it wrapped with FORTINO Wear good supportive shoes. Wear supportive shoe inserts that will support the arch of your foot. Avoid running for the next 2 weeks or anything that may aggravate your symptoms. You may take ibuprofen 600 mg to 800 mg every 6-8 hours. Do not exceed more than 800 mg of ibuprofen per dose. Do not exceed more than 3200 mg ibuprofen in a day. You may take up to 1000 mg Tylenol every 6-8 hours. Do not exceed 1000 mg per dose, do exceed more than 4000 mg of Tylenol in a day. Follow up with your primary care provider or ski topper in 1-2 weeks. Patient Language: Ukrainian Prescriptions: No Action loratadine [Claritin] 10 mg Tablet 10 mg PO DAILY Twirla 120-30 mcg/24 hr patch weekly 1 patch transdermal WEEKLY Qty: 9 1RF Rx Instructions: apply once weekly for 3 weeks of a 4-week cycle Follow-up/Referrals: [facility] [Provider Group, Podiatry] Omega Trejo DPM [Physician, Podiatry] Dana Ghotra DPM [Physician, Podiatry] Hiren,MD Gian [Primary Care Provider, Unknown] Eduardo Garcia DPM [Physician, Podiatry] Time of Disposition: 18:00
== END 2024-11-24 18:04 | disposition home or self-care (01) ==
PROVIDERS: PCP Family Medicine
DX: S93.602A Unspecified sprain of left foot, initial encounter (principal); X58.XXXA Exposure to other specified factors, initial encounter; J45.909 Unspecified asthma, uncomplicated
CPT/HCPCS: 73630; 99213; G0463